=== PATIENT | male | born 1960 | race Hispanic/Latino ===

== ENCOUNTER 2017-10-11 16:17 | Observation (INO) | payer OTHER ==
--- NOTE | 2017-10-11 16:32 | Emergency Department Report ---
- General Stated complaint: POSSIBLE STROKE Time Seen by Provider: 10/11/17 16:31 - History of Present Illness Initial comments: Chronic essential tremor high blood pressure hyperlipidemia developed weakness to his right upper extremity prior to arrival may have had some possible facial involvement as well Y states earlier he did seem to have some aphasia and dysarthria of this began around 3:30 this afternoon EMS arrived now w/ no gross strength deficits here for evaluation of possible tia, did feel like someting was blocking his vision earlier but is now resolved, here for eval transient focal neuro sx now resolving, he was seen and Gautam Nunn at one point time for a worst headache of his life" they did a head CT and an LP which was essentially unremarkable. Patient states he does occasionally get headaches with possible history of migraines. But no recent headaches. Today' s symptoms began with these symptoms and then in route he did start getting gradual onset throbbing headache. He is here not really complaining of the headache on his initial arrival stating that he had transient weakness to the right side with fascial involvement was some speech problems and possible visual involvement as well MD Complaint: focal weakness, numbness -: Gradual Location: RUE, R face Quality: tingling Consistency: intermittent Associated Symptoms: denies other symptoms, other (initial evaluation patient did deny other symptoms however at approximately 1800 patient did begin to complain of a headache he states that the headache did actually start in the ambulance on arrival he says it was gradual in intensity) - Related Data Home Medications Medication Instructions Recorded Confirmed Last Taken Allopurinol 100 mg PO TID 10/11/17 10/11/17 Unknown Gabapentin [Neurontin] 100 mg PO DAILY 10/11/17 10/11/17 Unknown Niacin 500 mg PO DAILY 10/11/17 10/11/17 Unknown Propranolol [Inderal] 80 mg PO BID 10/11/17 10/11/17 Unknown Simvastatin 20 mg PO DAILY 10/11/17 10/11/17 Unknown Allergies Allergy/AdvReac Type Severity Reaction Status Date / Time No Known Allergies Allergy Unverified 10/11/17 16:18 ED Review of Systems ROS: Stated complaint: POSSIBLE STROKE Other details as noted in HPI Comment: All other systems reviewed and negative Constitutional: denies: diaphoresis, fever, malaise ENT: denies: dental pain, hearing loss, epistaxis Respiratory: denies: shortness of breath, SOB with exertion, SOB at rest, stridor Cardiovascular: denies: chest pain, palpitations, dyspnea on exertion, orthopnea , syncope Gastrointestinal: denies: abdominal pain, nausea, vomiting, diarrhea, constipation, hematemesis, melena Skin: denies: rash, lesions Neurological: weakness, other (had a visual field problem on the right side with right-sided weakness) ED Past Medical Hx - Medications Home Medications: Home Medications Medication Instructions Recorded Confirmed Last Taken Type Allopurinol 100 mg PO TID 10/11/17 10/11/17 Unknown History Gabapentin [Neurontin] 100 mg PO DAILY 10/11/17 10/11/17 Unknown History Niacin 500 mg PO DAILY 10/11/17 10/11/17 Unknown History Propranolol [Inderal] 80 mg PO BID 10/11/17 10/11/17 Unknown History Simvastatin 20 mg PO DAILY 10/11/17 10/11/17 Unknown History ED Physical Exam - General General appearance: alert, in no apparent distress, anxious - Head Head exam: Present: atraumatic, normocephalic - Eye Eye exam: Present: PERRL, EOMI - ENT ENT exam: Present: normal exam, normal orophraynx - Neck Neck exam: Present: normal inspection. Absent: tenderness, meningismus - Respiratory Respiratory exam: Present: normal lung sounds bilaterally. Absent: respiratory distress, wheezes, rales, rhonchi, stridor, chest wall tenderness, accessory muscle use, decreased breath sounds, prolonged expiratory - Cardiovascular Cardiovascular Exam: Present: regular rate, normal rhythm, other (pulses equal bilaterally) - GI/Abdominal GI/Abdominal exam: Present: soft. Absent: distended, tenderness, guarding, rebound, rigid, mass, pulsatile mass - Extremities Exam Extremities exam: Present: normal inspection, normal capillary refill. Absent: pedal edema, joint swelling - Back Exam Back exam: Present: normal inspection, CVA tenderness (L) - Neurological Exam Neurological exam: Present: alert, oriented X3, CN II-XII intact, other ( question numbness to right extremity, question of hemianopsia visual field defect). Absent: motor sensory deficit - Assessment Assessment Interval: Baseline - Level of Consciousness 1a. Level of Consciousness: alert - LOC Questions 1b. LOC Questions: answers correctly - LOC Command 1c. LOC Commands: performs tasks correctly - Best Gaze 2. Best Gaze: normal - Visual 3. Visual: partial hemianopia - Facial Palsy 4. Facial Palsy: normal symmetrical movement - Motor Arm 5b. Motor Arm Right: no drift 5a. Motor Arm Left: no drift - Motor Leg 6a. Motor Leg Left: no drift 6b. Motor Leg Right: no drift - Limb Ataxia 7. Limb Ataxia: absent - Sensory 8. Sensory: mild/moderate sensory loss - Best Language 9. Best Language: no aphasia - Dysarthria 10. Dysarthria: normal - Extinction and Inattention 11. Extinction/Inattention: no abnormality - Scoring Total Score: 2 Stroke Severity: Minor Stroke ED Course Vital Signs 10/11/17 10/11/17 16:20 17:51 Temperature 98.2 F Pulse Rate 96 H Respiratory 16 16 Rate Blood Pressure 148/100 O2 Sat by Pulse 96 Oximetry ED Medical Decision Making - Lab Data Result diagrams: 10/11/17 16:49 10/11/17 16:49 - EKG Data -: EKG Interpreted by [facility] EKG shows normal: sinus rhythm - EKG Data Interpretation: other (acute ischemic change non acute) - Medical Decision Making Case was discussed with Dr. Sexton of neurology symptoms did start around 3:30 this evening he was having some type of speech problem with expressive aphasia or dysarthria with a right upper extremity weakness and right facial weakness that is now resolved Dr. Sexton evaluated on telemetry neurology. Patient likely did have a TIA and did recommend admission for further evaluation patient has no history of TIA workup no history of previous stroke on further questioning later in the course of the ED evaluation he did begin to complain of a nonexertional gradual onset headache with history of migraine symptoms might be related to migraines however he will be admitted for further evaluation of possible TIA, case was discussed with Dr. Jim will admit patient for further evaluation, patient does have risk factors for arterial disease he does have lipid disorder as well as hypertension and will need admission for further evaluation of TIA and further delineation of headache. He was given pain control in ED case was discussed Dr. Hayden who will admit patient for further evaluation and CT did not show any signs of bleed or stroke , patient had no sudden onset of exertional headache headache was gradual in onset clinically felt to be unlikely to represent subarachnoid bleed and with negative head CT within 6 hours window this essentially rules out subarachnoid bleed Critical care attestation.: If time is entered above; I have spent that time in minutes in the direct care of this critically ill patient, excluding procedure time. ED Disposition Clinical Impression: TIA (transient ischemic attack), Headache Disposition: OP ADMIT IP TO THIS HOSP Is pt being admited?: Yes Condition: Stable Referrals: PRIMARY CARE, [Primary Care Provider] - 3-5 Days Time of Disposition: 18:50
--- NOTE | 2017-10-11 16:43 | Cat Scan Report ---
FINAL REPORT PROCEDURE: CT head without contrast. TECHNIQUE: Computerized tomography of the head was performed without contrast material. HISTORY: neuro deficits < 6hrs or sx present upon awakening COMPARISON: No prior studies are available for comparison. FINDINGS: The ventricles are normal in size. The stevenson matter and white matter appear normal. There are no mass lesions. There is no intracranial hemorrhage. The calvarium appears intact. The mastoid air cells and visualized paranasal sinuses are well aerated. IMPRESSION: Normal study.
[2017-10-11 17:00] LABS: Basophils # (Auto) 0.1 K/mm3 (0.0-0.1); Basophils % (Auto) 0.7 % (0.0-1.8); Eosinophils # (Auto) 0.1 K/mm3 (0.0-0.4); Eosinophils % (Auto) 1.2 % (0.0-4.3); Hemoglobin 15.4 gm/dl (11.8-15.2); Lymphocytes % (Auto) 25.4 % (13.4-35.0); Mean Corpuscular HGB Conc 34 % (32-34); Mean Corpuscular Hemoglobin 32 pg (28-32); Mean Corpuscular Volume 94 fl (84-94); Monocytes # (Auto) 0.5 K/mm3 (0.0-0.8); Monocytes % (Auto) 6.9 % (0.0-7.3); Platelet Count 140 K/mm3 (140-440); Red Blood Count 4.77 M/mm3 (3.65-5.03); Red Cell Distribution Width 13.3 % (13.2-15.2)
[2017-10-11 17:21] LABS: INR 0.93 (0.87-1.13)
[2017-10-11 17:38] LABS: BUN/Creatinine Ratio 21; Blood Urea Nitrogen 38 mg/dL (9-20); Calcium 9.8 mg/dL (8.4-10.2); Hemolysis Index 7
[2017-10-11] MEDS ORDERED: ZOFRAN ONE (17:38)
[2017-10-11] MEDS ORDERED: MORPHINE ONE (17:38)
[2017-10-11] MEDS ORDERED: ZOFRAN IV ONE (17:39)
[2017-10-11] MEDS ORDERED: MORPHINE IV ONE (17:39)
[2017-10-11] MEDS ORDERED: REGLAN IV ONE (18:39)
[2017-10-11] MEDS ORDERED: TYLENOL PO PRN (18:42)
[2017-10-11] MEDS ORDERED: ZOFRAN IV PRN (18:42)
[2017-10-11] MEDS ORDERED: REGLAN PO PRN (18:42)
[2017-10-11] MEDS ORDERED: MILK OF MAGNESIA PO PRN (18:42)
[2017-10-11] MEDS ORDERED: DULCOLAX PR PRN (18:42)
[2017-10-11] MEDS ORDERED: SODIUM CHLORIDE FLUSH SYRINGE 10 ML IV PRN (18:42)
[2017-10-11] MEDS ORDERED: PHENERGAN PR PRN (18:42)
--- NOTE | 2017-10-11 18:42 | History and Physical Report ---
History of Present Illness Chief complaint: I felt weak on the right side of my face, and i could not talk History of present illness: 56 YO Male with HTN, HLD, Essential Tremor presents to ED for evaluation. Pt states that he experienced acute onset slurred speech, blurred vision, and weakness in his right arm that began around 1530hrs. Pt also complains of headache. EMS was notified and upon arrival and patient was found to have evidence of Acute CVA. Code stroke was called, and the patient was transported to [facility] for further care and evaluation. Pt seen and evaluated in ED. Teleneurology consulted in ED. Pt was not deemed a candidate for TPA. Pt denies fever, chills, CP, Palpitations, NVD, Syncope, BRBPR, Unintentional weight loss , night sweats. Pt admitted to telemetry. Past History Past Medical History: hypertension, hyperlipidemia, other (Essential tremor) Past Surgical History: No surgical history, Other (reviewed) Social history: , lives with family. denies: smoking, alcohol abuse, prescription drug abuse Family history: hypertension Medications and Allergies Allergies Allergy/AdvReac Type Severity Reaction Status Date / Time No Known Allergies Allergy Unverified 10/11/17 16:18 Home Medications Medication Instructions Recorded Confirmed Last Taken Type Allopurinol 100 mg PO TID 10/11/17 10/11/17 Unknown History Gabapentin [Neurontin] 100 mg PO DAILY 10/11/17 10/11/17 Unknown History Niacin 500 mg PO DAILY 10/11/17 10/11/17 Unknown History Propranolol [Inderal] 80 mg PO BID 10/11/17 10/11/17 Unknown History Simvastatin 20 mg PO DAILY 10/11/17 10/11/17 Unknown History Review of Systems Constitutional: no weight loss, no weight gain, no fever, no chills, no sweats Ears, nose, mouth and throat: no ear pain, no ear discharge, no tinnitis, no decreased hearing, no nasal congestion Cardiovascular: no chest pain, no orthopnea, no palpitations, no rapid/ irregular heart beat, no edema, no syncope Respiratory: no cough, no cough with sputum, no excessive sputum, no hemoptysis , no shortness of breath, no dyspnea on exertion Gastrointestinal: no abdominal pain, no nausea, no vomiting, no diarrhea, no constipation, no change in bowel habits Genitourinary Male: no dysuria, no hematuria, no flank pain, no discharge, no urinary frequency, no urinary hesitancy, no nocturia Rectal: no pain, no incontinence, no bleeding Musculoskeletal: no neck stiffness, no neck pain, no low back pain, no leg numbness/tingling, no redness of joints Integumentary: no rash, no pruritis, no redness, no sores Neurological: weakness, numbness, aphasia, change in speech, no changes in smell /taste Psychiatric: no anxiety, no memory loss, no change in sleep habits, no insomnia , no hypersomnia, no change in appetite, no change in libido Endocrine: no cold intolerance, no heat intolerance, no polyphagia, no polydipsia, no polyuria, no nocturia, no excessive sweating Hematologic/Lymphatic: no easy bruising, no lymphadenopathy, no lymphedema Allergic/Immunologic: no urticaria, no allergic rhinitis, no wheezing, no persistent infections, no anaphylaxis Exam - Constitutional Vitals: Temp Pulse Resp BP Pulse Ox 98.2 F 96 H 16 148/100 96 10/11/17 16:20 10/11/17 16:20 10/11/17 17:51 10/11/17 16:20 10/11/17 16:20 General appearance: Present: mild distress - EENT Eyes: Present: PERRL ENT: hearing intact, clear oral mucosa - Neck Neck: Present: supple, normal ROM - Respiratory Respiratory effort: normal Respiratory: bilateral: CTA - Cardiovascular Heart Sounds: Present: S1 & S2. Absent: rub, click - Extremities Extremities: pulses symmetrical, No edema Peripheral Pulses: within normal limits - Abdominal General gastrointestinal: Present: soft, non-tender, non-distended, normal bowel sounds Male genitourinary: Present: normal - Integumentary Integumentary: Present: clear, warm, dry - Musculoskeletal Musculoskeletal: gait normal, strength equal bilaterally - Psychiatric Psychiatric: appropriate mood/affect, intact judgment & insight - Neurologic Neurologic: CNII-XII intact, moves all extremities Results - Labs CBC & Chem 7: 10/11/17 16:49 10/11/17 16:49 Labs: Abnormal lab results 10/11/17 10/11/17 Range/Units 16:49 16:49 Hgb 15.4 H (11.8-15.2) gm/dl Chloride 97.2 L (98-107) mmol/L Carbon Dioxide 21 L (22-30) mmol/L BUN 38 H (9-20) mg/dL Creatinine 1.8 H (0.8-1.5) mg/dL Assessment and Plan - Patient Problems (1) CVA (cerebral vascular accident) Current Visit: Yes Status: Acute Qualifiers: Precerebral and cerebral artery: middle cerebral artery Laterality of affected vessel: right Plan to address problem: Stroke Protocol: CT Head, MRI Brain, MRA Brain, Echo, Carotid Doppler, Antiplatelet therapy, PT/OT/ Speech, EEG (2) ARF (acute renal failure) Current Visit: Yes Status: Acute Qualifiers: Acute renal failure type: with acute tubular necrosis Qualified Code(s): N17.0 - Acute kidney failure with tubular necrosis Plan to address problem: IVF resuscitation therapy, monitor uop q shift, monitor serum creatnine (3) HTN (hypertension) Current Visit: Yes Status: Acute Qualifiers: Hypertension type: essential hypertension Qualified Code(s): I10 - Essential (primary) hypertension Plan to address problem: Monitor bp q shift, permissive hypertension overnight. (4) HLD (hyperlipidemia) Current Visit: Yes Status: Acute Qualifiers: Hyperlipidemia type: mixed hyperlipidemia Qualified Code(s): E78.2 - Mixed hyperlipidemia Plan to address problem: Lipid panel, statin therapy, low cholesterol diet (5) DVT prophylaxis Current Visit: Yes Status: Acute Plan to address problem: SCD to BLE while in bed
[2017-10-11] MEDS ORDERED: DILAUDID ONE (19:48)
[2017-10-11] MEDS ORDERED: REGLAN ONE (19:49)
[2017-10-11] MEDS ORDERED: ZYLOPRIM PO SCH (20:00)
[2017-10-11] MEDS ORDERED: DILAUDID IV ONE (20:00)
[2017-10-11] MEDS: ZYLOPRIM PO SCH (21:20)
[2017-10-11] MEDS ORDERED: PRAVACHOL PO SCH (22:00)
[2017-10-11] MEDS: PLAVIX PO SCH (22:55)
[2017-10-12 07:59] LABS: Chol/HDL Ratio 2.21 %
[2017-10-12] MEDS ORDERED: NEURONTIN PO SCH (10:00)
[2017-10-12] MEDS ORDERED: ASPIRIN PO SCH (10:00)
[2017-10-12] MEDS ORDERED: NON-FORMULARY (Simvastatin [Simvastatin] 20 MG) PO SCH (10:00)
[2017-10-12] MEDS ORDERED: NIACIN PO SCH (10:00)
--- NOTE | 2017-10-12 11:23 | Magnetic Resonance Report ---
MRI BRAIN WITHOUT CONTRAST: 10/11/17 18:42:00 CLINICAL: Stroke. TECHNIQUE: Axial diffusion, T1, T2, gradient echo T2*, coronal and axial FLAIR and sagittal T1 sequences on a 1.5 Elena magnet. FINDINGS: The ventricles and sulci are large for age. No restricted diffusion and no abnormal signal on any sequence. No mass or mass effect. No hemorrhage, edema or extra-axial collection. The pituitary is relatively small and the sella is filled with CSF. Normal optic chiasm. The brainstem and cerebellum are normal. Intact vascular flow voids. Normal sinuses. The orbits, and soft tissues are normal. Normal calvarium and skull base. IMPRESSION: No evidence of acute/subacute infarct or hemorrhage. Global cortical atrophy and an empty sella.
[2017-10-12] MEDS: ZYLOPRIM PO SCH ×2 (11:28→14:30)
[2017-10-12] MEDS: PLAVIX PO SCH (11:28)
--- NOTE | 2017-10-12 11:41 | Discharge Summary ---
Providers - Providers Date of Admission: 10/11/17 18:42 Attending physician: SAM JEFFERSON MD 10/11/17 18:42 Occupational Therapy Evaluate and Treat [CONS] Routine Comment: Reason For Exam: Neuro deficits Physical Therapy Evaluation and Treat [CONS] Routine Comment: Reason For Exam: Neuro deficits Primary care physician: COSMETICS COUNTER MANAGER Hospitalization Reason for admission: aphasia Condition: Stable Hospital course: 56 YO Male with HTN, HLD, Essential Tremor presents to ED for evaluation. Pt states that he experienced acute onset slurred speech, blurred vision, and weakness in his right arm that began around 1530hrs. Pt also complains of headache. EMS was notified and upon arrival and patient was found to have evidence of Acute CVA. Code stroke was called, and the patient was transported to [facility] for further care and evaluation. Pt seen and evaluated in ED. Teleneurology consulted in ED. Pt was not deemed a candidate for TPA. Pt denies fever, chills, CP, Palpitations, NVD, Syncope, BRBPR, Unintentional weight loss , night sweats. Patient was reevaluated by me and also records from primary care physician was reviewed. Imaging studies were remarkable for CVA. Patient was informed about findings of acute kidney injury which is worse compared to prior results. She was given fluids and repeat spelled it was not recommended to follow-up with primary care physician for repeat study to 3 days. He verbalized understanding and is accompanied by his . (1) TIA (2) ARF (acute renal failure) secondary to acute tubular nephrosis (3) HTN (hypertension) (4) HLD (hyperlipidemia) Disposition: DC-01 TO HOME OR SELFCARE Time spent for discharge: 35 mins Core Measure Documentation - Palliative Care Palliative Care/ Comfort Measures: Not Applicable - Core Measures Any of the following diagnoses?: stroke - VTE Discharge Requirements Deep Vein Thrombosis/Pulmonary Embolism Present on Admission: No - Stroke Discharge Requirements Statin for LDL = or >70 mg/dl on DC: Yes Anticoag for atrial fib/atrial flutter: Not Applicable Antithrombotic for ischemic stroke: Yes Exam - Physical Exam Narrative exam: VITAL SIGNS: Reviewed. GENERAL: The patient appeared well nourished and normally developed. Vital signs as documented. HEAD: No signs of head trauma. EYES: Pupils are equal. Extraocular motions intact. EARS: Hearing grossly intact. MOUTH: Oropharynx is normal. NECK: No adenopathy, no JVD. CHEST: Chest with clear breath sounds bilaterally. No wheezes, rales, or rhonchi. CARDIAC: Regular rate and rhythm. S1 and S2, without murmurs, gallops, or rubs. VASCULAR: No Edema. Peripheral pulses normal and equal in all extremities. ABDOMEN: Soft, without detectable tenderness. No sign of distention. No rebound or guarding, and no masses palpated. Bowel Sounds normal. MUSCULOSKELETAL: Good range of motion of all major joints. Extremities without clubbing, cyanosis or edema. NEUROLOGIC EXAM: Alert and oriented x 3. No focal sensory or strength deficits. Speech normal. Follows commands. PSYCHIATRIC: Mood normal. SKIN: No rash or lesions. - Constitutional Vitals: Temp Pulse Resp BP Pulse Ox 98.4 F 67 18 127/82 95 10/12/17 08:00 10/12/17 08:17 10/12/17 08:17 10/12/17 08:17 10/12/17 08:17 Plan Activity: advance as tolerated, fall precautions Diet: low cholesterol Special Instructions: record daily weights, record daily BP diary Additional Instructions: Repeat Renal function test with PCP in 3 days. Follow up with: PRIMARY CARE, [Primary Care Provider] - 3-5 Days Forms: Work/School Release Form Prescriptions: Aspirin [Aspirin TAB] 325 mg PO QDAY #30 tablet Simvastatin 40 mg PO DAILY #30 tablet
[2017-10-12] MEDS ORDERED: NACL 0.9% 1000 ML 1,000 ML IV SCH (12:00)
--- NOTE | 2017-10-12 12:08 | Magnetic Resonance Report ---
MRA HEAD WITHOUT CONTRAST INDICATION: Stroke. COMPARISON: None similar. FINDINGS: MRA of the head performed without intravenous contrast and demonstrates no evidence of flow-limiting stenosis, occlusion or vascular malformation. Left vertebral artery dominant. Please note that detection of aneurysms less than 5 mm is limited on this exam. CONCLUSION: Normal study of the [place]. Thank you for the opportunity to participate in this patient's care.
[2017-10-12 13:04] VITALS: BP 116/80
--- NOTE | 2017-10-21 15:12 | Vascular Lab Report ---
CAROTID DUPLEX STUDY: RIGHT PSVEDV CCA PROX:[id number] CCA DIST:[id number] ICA PROX:5822 ICA MID:6228 ICA DIST:8037 ECA: 102 16 VERT: 36 10 LEFT PSVEDV CCA PROX:9624 CCA DIST:7525 ICA PROX:4720 ICA MID:7934 ICA DIST:7839 ECA: [id number] VERT: 52 22 REASON FOR EXAM: Stroke. COMMENTS ON THE RIGHT: Doppler frequency analysis is consistent with 16 to 49 percent diameter reduction of the internal carotid artery. A small area of eccentric calcified plaque is noted at the carotid bulb. The common carotid artery is patent. The external carotid artery is patent. The vertebral artery has antegrade flow. COMMENTS ON THE LEFT: Doppler frequency analysis is consistent with 16 to 49 percent diameter reduction of the internal carotid artery. Similar to the right, there is an eccentric calcified plaque in the carotid bulb. The common carotid artery is patent. The external carotid artery is patent. The vertebral artery has antegrade flow. IMPRESSION: Less than 50% diameter reduction in the internal carotid arteries bilaterally. Eccentric, calcified plaque within the carotid bulbs bilaterally. Recommend repeat carotid artery duplex in 12 months.
== END 2017-10-12 17:40 | disposition home or self-care (01) ==
LOC: ED 16:17 → INTOOBSV 18:42 → 4A 18:42
PROVIDERS: ADMIT Internal Medicine; ATTEND Internal Medicine
DX: G45.9 Transient cerebral ischemic attack, unspecified (principal); N17.0 Acute kidney failure with tubular necrosis; E78.5 Hyperlipidemia, unspecified; I10 Essential (primary) hypertension; Z82.49 Family history of ischemic heart disease and other diseases of the circulatory system
CPT/HCPCS: 36415; 70450; 70544; 70551; 80048; 80061; 84484; 85025; 85610; 85670; 85730; 93005; 93010; 93306; 93880; 96361; 96374; 96375; 97162; 97165; 99285; A9270; G0378; J1170; J2270; J2405; J2765; J7030

== ENCOUNTER 2021-11-29 17:24 | Observation (INO) | payer SELFPAY ==
[2021-11-29] MEDS ORDERED: THIAMINE 100 MG, FOLIC ACID 1 MG, MULTIPLE VITAMIN INJ, ADULT 10 ML in SODIUM CHLORIDE ... IV ONE (18:00)
[2021-11-29] MEDS ORDERED: SODIUM CHLORIDE 0.9% 1000 ML 1,000 ML IV ONE (18:00)
[2021-11-29] MEDS ORDERED: LORazepam 2 MG/ML VIAL IV PRN ×3 (18:02)
[2021-11-29] MEDS ORDERED: LORazepam 2 MG/ML VIAL IV ONE (18:04)
[2021-11-29] MEDS ORDERED: ONDANSETRON 4 MG/2 ML INJ IV ONE (18:04)
--- NOTE | 2021-11-29 18:04 | Emergency Department Report ---
ED Alcohol HPI - General Chief Complaint: Alcohol Stated Complaint: TREMORS/NAUSEA Time Seen by Provider: 11/29/21 17:45 Source: patient, EMS Mode of arrival: Stretcher Limitations: No Limitations - History of Present Illness Initial Comments: Patient is a 61-year-old male that presents emergency room for tremors, nausea, vomiting. Patient states he drinks regularly. Patient states his last drink was 3 days ago. Patient states he has essential tremors but the tremors are worsening. Patient states he also feels anxious. Patient states he has vomited twice. Patient denies chest pain or shortness of breath. Patient denies abdominal pain. Patient denies recent travel. Patient denies recent international travel. Patient denies exposure to the novel coronavirus. Patient denies sick contacts. Patient denies fever and chills. Patient denies cough. Patient denies diarrhea. Patient denies coming in contact with anybody with symptoms of the novel coronavirus. MD Complaint: alcohol withdrawal Chronic Alcohol Use: Yes Previous Visits for Alcohol Intoxication?: No Recent Trauma: No Associated Symptoms: nausea, vomiting, tremors Treatments Prior to Arrival: none - Related Data Home Medications Medication Instructions Recorded Confirmed Last Taken Gabapentin 100 mg PO DAILY 10/11/17 10/11/17 Unknown Niacin (Nf) 500 mg PO DAILY 10/11/17 10/11/17 Unknown allopurinoL [Allopurinol] 100 mg PO TID 10/11/17 10/11/17 Unknown propranoloL [Inderal] 80 mg PO BID 10/11/17 10/11/17 Unknown Previous Rx's Medication Instructions Recorded Last Taken Type Aspirin 325 mg PO QDAY #30 tablet 10/12/17 Unknown Rx Simvastatin 40 mg PO DAILY #30 tablet 10/12/17 Unknown Rx Allergies Allergy/AdvReac Type Severity Reaction Status Date / Time No Known Allergies Allergy Unverified 11/29/21 17:38 ED Review of Systems ROS: Stated complaint: TREMORS/NAUSEA Other details as noted in HPI Constitutional: denies: chills, fever Eyes: denies: eye pain, eye discharge, vision change ENT: denies: ear pain, throat pain Respiratory: denies: cough, shortness of breath, wheezing Cardiovascular: denies: chest pain, palpitations Endocrine: no symptoms reported Gastrointestinal: as per HPI, nausea, vomiting. denies: abdominal pain, diarrhea Genitourinary: denies: urgency, dysuria Musculoskeletal: denies: back pain, joint swelling, arthralgia Skin: denies: rash, lesions Neurological: as per HPI. denies: headache, weakness, paresthesias Psychiatric: as per HPI, anxiety. denies: depression Hematological/Lymphatic: denies: easy bleeding, easy bruising ED Past Medical Hx - Past Medical History Previous Medical History?: Yes Hx Hypertension: Yes Additional medical history: Gout; Essential tremors; High cholesterol; L ulnar neuropathy; L carpal tunnel; - Surgical History Past Surgical History?: Yes Additional Surgical History: R Hip x2 - Family History Family history: no significant - Social History Smoking Status: Current Every Day Smoker Substance Use Type: Alcohol - Medications Home Medications: Home Medications Medication Instructions Recorded Confirmed Last Taken Type Gabapentin 100 mg PO DAILY 10/11/17 10/11/17 Unknown History Niacin (Nf) 500 mg PO DAILY 10/11/17 10/11/17 Unknown History allopurinoL [Allopurinol] 100 mg PO TID 10/11/17 10/11/17 Unknown History propranoloL [Inderal] 80 mg PO BID 10/11/17 10/11/17 Unknown History Aspirin 325 mg PO QDAY #30 tablet 10/12/17 Unknown Rx Simvastatin 40 mg PO DAILY #30 tablet 10/12/17 Unknown Rx ED Physical Exam - General Limitations: No Limitations General appearance: alert, in no apparent distress - Head Head exam: Present: atraumatic, normocephalic - Eye Eye exam: Present: normal appearance - ENT ENT exam: Present: mucous membranes moist - Neck Neck exam: Present: normal inspection - Respiratory Respiratory exam: Present: normal lung sounds bilaterally. Absent: respiratory distress - Cardiovascular Cardiovascular Exam: Present: regular rate, normal rhythm. Absent: systolic murmur, diastolic murmur, rubs, gallop - GI/Abdominal GI/Abdominal exam: Present: soft, normal bowel sounds - Rectal Rectal exam: Present: deferred - Extremities Exam Extremities exam: Present: normal inspection - Back Exam Back exam: Present: normal inspection - Neurological Exam Neurological exam: Present: alert, oriented X3 - Psychiatric Psychiatric exam: Present: normal affect, normal mood - Skin Skin exam: Present: warm, dry, intact, normal color. Absent: rash ED Course Vital Signs 11/29/21 11/29/21 11/29/21 17:24 18:00 18:15 Temperature 98.5 F 98.4 F Pulse Rate 115 H 94 H 93 H Respiratory 18 14 13 Rate Blood Pressure 153/92 147/97 Blood Pressure 138/86 [Left] O2 Sat by Pulse 98 95 93 Oximetry 11/29/21 11/29/21 11/29/21 18:29 18:30 18:45 Temperature 98.4 F Pulse Rate 96 H 96 H 101 H Respiratory 14 24 13 Rate Blood Pressure 148/97 148/97 Blood Pressure 148/79 [Left] O2 Sat by Pulse 96 92 94 Oximetry 11/29/21 11/29/21 11/29/21 19:01 19:15 19:30 Temperature Pulse Rate 94 H 107 H 105 H Respiratory 17 14 16 Rate Blood Pressure 148/97 148/97 Blood Pressure [Left] O2 Sat by Pulse 96 98 97 Oximetry 11/29/21 11/29/21 11/29/21 19:45 20:00 20:55 Temperature 97.7 F Pulse Rate 100 H 94 H Respiratory 16 13 Rate Blood Pressure 135/94 137/92 Blood Pressure [Left] O2 Sat by Pulse 97 98 Oximetry - Reevaluation(s) Reevaluation #1: Initial valuation done. Patient placed on CiWA protocol. Patient given Zofran and Ativan now. Patient also given IV fluids. 11/29/21 18:05 Reevaluation #2: Patient states that the tremors are worsening. Patient started be given Ativan. 11/29/21 1930 Reevaluation #3: I discussed all results with patient. I discussed plan of care with patient. Patient agrees with plan of care and admission. Patient to be admitted to the hospitalist service. 11/29/21 20:35 - Consultations Consultation #1: Hospitalist consulted for admission. Hospitalist to admit patient. 11/29/21 20:27 ED Medical Decision Making - Lab Data Result diagrams: 11/29/21 18:35 11/29/21 18:35 - Medical Decision Making Patient is a 61-year-old male who presents emergency room with tremors. Patient has a history of essential tremors. Patient states he quit drinking a pproximately 3 days ago. Patient states he normally drinks regularly and heavily. Patient states that ever since he quit drinking his tremors have worsened. Patient also complains of nausea and vomiting. Patient given Zofran for nausea vomiting. Patient given Ativan for alcohol withdrawal. Patient appears to already be going into alcohol withdrawal. Patient had labs done which were essentially unremarkable except for signs of dehydration. Patient given fluids. Patient placed on a CIWA protocol. Patient admitted to the hospital service for further evaluation and treatment. Critical care time documented due to the multiple reassessments, prolonged time at the bedside, interpretation of diagnostics and labs. - Differential Diagnosis Dehydration, tremor, alcohol withdrawal, Critical Care Time: Yes Critical care time in (mins) excluding proc time.: 35 Critical care attestation.: If time is entered above; I have spent that time in minutes in the direct care of this critically ill patient, excluding procedure time. Critical Care Time: 35 minutes ED Disposition Clinical Impression: Delirium tremens, Dehydration Alcohol withdrawal syndrome Qualifiers: Complication of substance-induced condition: with perceptual disturbance Qualified Code(s): F10.932 - Alcohol use, unspecified with withdrawal with perceptual disturbance Disposition: 09 ADMITTED INPATIENT Is pt being admited?: Yes Does the pt Need Aspirin: No Condition: Critical Time of Disposition: 21:28
--- NOTE | 2021-11-29 18:39 | History and Physical Report ---
History of Present Illness Chief complaint: I do not feel good History of present illness: 61 YO Male with ETOH Dependence, HTN, HLD, Essential Tremor presents to ED for evaluation. Pt reports "I do not feel good". Patient states that he has been binge drinking alcohol for the past several days and subsequently stopped a few days ago. Patient reports feeling agitated, confused, and nauseous. Patient acknowledges diaphoresis, tremulousness, abdominal cramping. EMS was notified and upon arrival and patient was found to be in distress and subsequent transported to [facility] for further care and evaluation of the aforementioned symptoms. The patient was seen and evaluated in the emergency department. All lab and imaging studies reviewed. Patient found to have clinical symptoms consistent with delirium tremens complicated by alcohol withdrawal, as well as volume depletion. Patient admitted to medical floor due to increased risk of worsening symptoms and for medical stabilization. Patient initiated on CIWA protocol as well as alcohol withdrawal protocol. Patient denies fever, chills, chest pain, palpitation, productive cough, skin rash and recent contact, known exposure to COVID-19. Prior admission on 10/11/2017 reviewed. No medication listed at time of admission for reconciliation. Advanced care planning conducted in ED. Past History Past Medical History: hypertension, hyperlipidemia, other (See HPI) Social history: , alcohol abuse Family history: diabetes, hypertension Medications and Allergies Allergies Allergy/AdvReac Type Severity Reaction Status Date / Time No Known Allergies Allergy Unverified 11/29/21 17:38 Home Medications Medication Instructions Recorded Confirmed Last Taken Type Gabapentin 100 mg PO DAILY 10/11/17 10/11/17 Unknown History Niacin (Nf) 500 mg PO DAILY 10/11/17 10/11/17 Unknown History allopurinoL [Allopurinol] 100 mg PO TID 10/11/17 10/11/17 Unknown History propranoloL [Inderal] 80 mg PO BID 10/11/17 10/11/17 Unknown History Aspirin 325 mg PO QDAY #30 tablet 10/12/17 Unknown Rx Simvastatin 40 mg PO DAILY #30 tablet 10/12/17 Unknown Rx Active Meds: Active Medications Thiamine HCl 100 mg/ Folic Acid 1 mg/ Multivitamins/Minerals 10 ml/ Sodium Chloride 1,011.2 mls @ 250 mls/hr IV ONCE ONE Stop: 11/29/21 22:02 Sodium Chloride (Nacl 0.9% 1000 Ml) 1,000 mls @ 999 mls/hr IV BOLUS ONE Stop: 11/29/21 19:00 Last Admin: 11/29/21 18:26 Dose: 999 mls/hr Lorazepam (Lorazepam 2 Mg/Ml Vial) 2 mg IV Q1HR PRN PRN Reason: CIWA-Ar 8-15 Lorazepam (Lorazepam 2 Mg/Ml Vial) 4 mg IV Q1HR PRN PRN Reason: CIWA-Ar 16-25 Lorazepam (Lorazepam 2 Mg/Ml Vial) 4 mg IV Q15MIN PRN PRN Reason: CIWA-Ar >25 Review of Systems Constitutional: no weight loss, no weight gain, no fever, no chills Ears, nose, mouth and throat: no ear pain, no tinnitis, no decreased hearing, no nasal discharge Cardiovascular: no chest pain, no orthopnea, no palpitations, no rapid/irregular heart beat, no edema Respiratory: no cough, no excessive sputum, no hemoptysis, no shortness of breath Gastrointestinal: nausea, no diarrhea, no change in bowel habits Genitourinary Male: no hematuria, no flank pain, no discharge, no urinary hesitancy Rectal: no pain, no incontinence, no bleeding Musculoskeletal: no neck stiffness, no shooting arm pain, no low back pain, no leg numbness/tingling Integumentary: no rash, no sores, no wounds, no jaundice Neurological: no transient paralysis, no paralysis, no numbness, no tingling Psychiatric: no anxiety, no change in sleep habits, no insomnia, no change in appetite, no change in libido Endocrine: no cold intolerance, no polyphagia, no polydipsia, no polyuria, no nocturia Hematologic/Lymphatic: no easy bruising, no easy bleeding Allergic/Immunologic: no urticaria, no anaphylaxis Exam - Constitutional Vitals: Temp Pulse Resp BP Pulse Ox 98.4 F 96 H 14 148/79 96 11/29/21 18:29 11/29/21 18:29 11/29/21 18:29 11/29/21 18:29 11/29/21 18:29 General appearance: Present: mild distress, cachectic - EENT Eyes: Present: PERRL ENT: hearing intact, clear oral mucosa - Neck Neck: Present: supple, normal ROM - Respiratory Respiratory effort: normal Respiratory: bilateral: CTA - Cardiovascular Heart Sounds: Present: S1 & S2. Absent: rub, click - Extremities Extremities: pulses symmetrical, No edema Peripheral Pulses: within normal limits - Abdominal General gastrointestinal: Present: soft, non-tender, non-distended, normal bowel sounds Male genitourinary: Present: normal - Integumentary Integumentary: Present: clear, warm, dry - Musculoskeletal Musculoskeletal: gait normal, strength equal bilaterally - Psychiatric Psychiatric: appropriate mood/affect, intact judgment & insight - Neurologic Neurologic: CNII-XII intact, moves all extremities Assessment and Plan - Patient Problems (1) Delirium tremens Status: Acute Plan to address problem: Thiamine, folic acid, multivitamin, CIWA protocol, banana bag, supportive care. Seizure precautions. (2) Alcohol withdrawal syndrome Status: Acute Qualifiers: Complication of substance-induced condition: with perceptual disturbance Qualified Code(s): F10.932 - Alcohol use, unspecified with withdrawal with perceptual disturbance Plan to address problem: Alcohol withdrawal protocol, CIWA protocol, thiamine, folic acid, multivitamin, IV fluid resuscitation therapy, banana bag. (3) Volume depletion Status: Acute Plan to address problem: IV fluid resuscitation therapy, BMP, repeat BMP in a.m., monitor fluid balance. (4) DVT prophylaxis Status: Acute Plan to address problem: SCDs bilateral lower extremities while in bed (5) Advance care planning Status: Acute Plan to address problem: Disease education done, care plan discussed, diagnosis discussed, prognosis discussed, patient is full code. Patient knowledges understanding and agreement with care plan, +30 minutes. (6) Preventative health care Status: Acute Plan to address problem: Patient counseled regarding alcohol cessation, outpatient follow-up with primary care physician for all age and risk factor appropriate screening test. +30 minutes.
[2021-11-29] MEDS ORDERED: oxyCODONE /ACETAMINOPHEN 5-325MG TAB PO PRN (18:44)
[2021-11-29] MEDS ORDERED: ACETAMINOPHEN 325 MG TAB PO PRN (18:44)
[2021-11-29] MEDS ORDERED: HYDROmorphone 0.5 MG/0.5 ML INJ IV PRN (18:44)
[2021-11-29] MEDS ORDERED: ONDANSETRON 4 MG/2 ML INJ IV PRN (18:44)
[2021-11-29] MEDS ORDERED: ALBUTEROL 2.5 MG/3 ML NEBU IH PRN (18:44)
[2021-11-29] MEDS ORDERED: MULTIVITAMINS ,THERAPEUTIC TAB PO ONE (18:48)
[2021-11-29] MEDS ORDERED: THIAMINE 100 MG TAB PO ONE (18:48)
[2021-11-29 19:12] LABS: Albumin 3.9 g/dL (3.9-5); Calcium 8.3 mg/dL (8.4-10.2)
[2021-11-29 19:36] LABS: Basophils # (Auto) 0.1 K/mm3 (0.0-0.1); Hematocrit 34.8 % (35.5-45.6); Hemoglobin 12.3 gm/dl (11.8-15.2); Lymphocytes # (Auto) 0.7 K/mm3 (1.2-5.4); Lymphocytes % (Auto) 12.2 % (13.4-35.0); Mean Corpuscular HGB Conc 35 % (32-34); Mean Corpuscular Volume 99 fl (84-94); Monocytes # (Auto) 0.3 K/mm3 (0.0-0.8); Monocytes % (Auto) 4.4 % (0.0-7.3); Platelet Count 145 K/mm3 (140-440); Red Blood Count 3.52 M/mm3 (3.65-5.03); Red Cell Distribution Width 13.3 % (13.2-15.2)
[2021-11-29 21:07] LABS: Bilirubin,Urine Negative (Negative); Blood,Urine Negative (Negative); Color,Urine Colorless (Yellow)
[2021-11-29 21:08] LABS: Urobilinogen,Urine 0.2 mg/dL (<2.0); WBC,Urine < 1.0 /HPF (0.0-6.0)
[2021-11-29 21:11] LABS: Amphetamine Screen,Urine Negative; Benzodiazepines Screen,Urine Negative; Cannabinoid Screen,Urine Negative; Cocaine Screen,Urine Negative; Methadone Screen,Urine Negative; Opiate Screen,Urine Negative
[2021-11-29] MEDS: FAMOTIDINE 20 MG TAB PO SCH (22:46)
[2021-11-29 23:27] VITALS: BP 133/93
[2021-11-30] MEDS ORDERED: LORazepam 2 MG TAB PO ONE (00:49)
[2021-11-30 04:47] LABS: Basophils % (Auto) 0.8 % (0.0-1.8); Eosinophils % (Auto) 0.1 % (0.0-4.3); Hemoglobin 12.2 gm/dl (11.8-15.2); Lymphocytes # (Auto) 1.1 K/mm3 (1.2-5.4); Lymphocytes % (Auto) 33.3 % (13.4-35.0); Mean Corpuscular HGB Conc 35 % (32-34); Mean Corpuscular Volume 98 fl (84-94); Monocytes # (Auto) 0.4 K/mm3 (0.0-0.8); Monocytes % (Auto) 12.2 % (0.0-7.3); Platelet Count 127 K/mm3 (140-440); Red Blood Count 3.56 M/mm3 (3.65-5.03); Red Cell Distribution Width 13.3 % (13.2-15.2)
[2021-11-30] MEDS ORDERED: FOLIC ACID 1 MG TAB PO SCH (10:00)
--- NOTE | 2021-11-30 10:29 | Discharge Summary ---
Providers - Providers Date of Admission: 11/29/21 18:45 Date of discharge: 11/30/21 Attending physician: RAGHU LIVE Primary care physician: STEVE HERNANDEZ Hospitalization Reason for admission: ETOH withdrawal Condition: Critical Hospital course: 61 YO Male with ETOH Dependence, HTN, HLD, Essential Tremor presents to ED for evaluation of general malaise. Patient stated that he had been binge drinking alcohol for the past several days and subsequently stopped a few days ago [employer]. Patient reported feeling agitated, confused, and nauseous. Patient acknowledged diaphoresis, tremulousness, abdominal cramping. EMS was notified and upon arrival and patient was found to be in distress and subsequent transported to [facility] for further care and evaluation of the aforementioned symptoms. The patient was seen and evaluated in the emergency department. All lab and imaging studies reviewed. Patient found to have clinical symptoms consistent with delirium tremens complicated by alcohol withdrawal, as well as volume depletion. Patient admitted to medical floor due to increased risk of worsening symptoms and for medical stabilization. Patient initiated on CIWA protocol as well as alcohol withdrawal protocol. The patient received IV fluid hydration along with folic acid, multivitamin and thiamine. Patient's symptoms improved and patient return back to his baseline. Nurse reports that her note no CIWA score and patient is alert and oriented x4 with no signs of distress. Patient has essential tremor but no other tremulousness that would be associated with alcohol withdrawal. Patient is felt to have received maximal hospital benefit and will be discharged home. Patient was counseled on the importance of alcohol cessation. Dedicated discharge time 32 minutes Disposition: 01 HOME / SELF CARE / HOMELESS Final Discharge Diagnosis (Prints w/discharge instructions): EtOH abuse, alcohol withdrawal, volume depletion Core Measure Documentation - Palliative Care Palliative Care/ Comfort Measures: Not Applicable - Core Measures Any of the following diagnoses?: none Exam - Constitutional Vitals: Temp Pulse Resp BP Pulse Ox 99.0 F 93 H 14 133/93 97 11/29/21 21:27 11/29/21 21:27 11/30/21 08:36 11/29/21 21:27 11/30/21 09:10 General appearance: Present: no acute distress, well-nourished - EENT Eyes: Present: PERRL ENT: hearing intact, clear oral mucosa - Neck Neck: Present: supple, normal ROM - Respiratory Respiratory effort: normal Respiratory: bilateral: CTA - Cardiovascular Heart Sounds: Present: S1 & S2. Absent: rub, click - Extremities Extremities: pulses symmetrical, No edema Peripheral Pulses: within normal limits - Abdominal General gastrointestinal: Present: soft, non-tender, non-distended, normal bowel sounds Male genitourinary: Present: normal - Integumentary Integumentary: Present: clear, warm, dry - Musculoskeletal Musculoskeletal: gait normal, strength equal bilaterally - Psychiatric Psychiatric: appropriate mood/affect, intact judgment & insight - Neurologic Neurologic: CNII-XII intact, moves all extremities Plan Activity: advance as tolerated Weight Bearing Status: Weight Bear as Tolerated Diet: regular Follow up with: STEVE HERNANDEZ MD [Primary Care Provider] - 7 Days
[2021-11-30] MEDS: FAMOTIDINE 20 MG TAB PO SCH (10:36)
== END 2021-11-30 12:01 | disposition home or self-care (01) ==
LOC: ED 17:24 → INTOOBSV 18:45 → 3A 18:45
PROVIDERS: ADMIT Internal Medicine; ATTEND Hospitalist
DX: E86.9 Volume depletion, unspecified (principal); F10.231 Alcohol dependence with withdrawal delirium; F10.239 Alcohol dependence with withdrawal, unspecified; I10 Essential (primary) hypertension; E86.0 Dehydration; E78.5 Hyperlipidemia, unspecified; E78.00 Pure hypercholesterolemia, unspecified; Z79.82 Long term (current) use of aspirin; Z79.899 Other long term (current) drug therapy; Z98.890 Other specified postprocedural states
CPT/HCPCS: 36415; 80053; 80307; 81001; 85025; 96361; 96365; 96375; 96376; 99291; G0378; J1170; J2060; J2405; J3411; J3490; J7030; 80320; G0480